=== PATIENT | male | born 1960 | race Caucasian/White ===

== ENCOUNTER 2017-09-04 17:52 | Emergency (ER) | payer BC ==
[2017-09-04 18:59] VITALS: BP 146/92
--- NOTE | 2017-09-04 19:36 | UC ---
Shoulder Pain HPI - HPI Summary HPI Summary: Pt presents with c/o right shoulder pain and "ball in right upper arm" . Pt states that he threw a foot ball 7 months ago and had sudden onset of right shoulder pain and "ball" form in right upper arm and extensive bruising that has since resolved. - History of Current Complaint Chief Complaint: UCUpperExtremity Stated Complaint: PAINFUL SHOULDER (STATED: TORN ROTATOR CUFF) Time Seen by Provider: 09/04/17 19:01 Hx Obtained From: Patient Onset/Duration: Sudden Onset, Still Present Timing: Constant Severity Initially: Moderate Severity Currently: Mild Location Of Pain: Is Discrete @ - right shoulder Pain Intensity: 6 Character: Dull, Stiffness Aggravating Factor(s): Movement, Lifting, Flexion, Extension, Internal Rotation , External Rotation, Abduction Alleviating Factor(s): Rest Associated Signs And Symptoms: Positive: Negative Related History: Dominant Hand Right - Risk Factors Non-Orthopedic Risk Factor: Negative DVT Risk Factors: Smoking Septic Arthritis Risk Factor: Negative - Allergies/Home Medications Allergies/Adverse Reactions: Allergies Allergy/AdvReac Type Severity Reaction Status Date / Time No Known Allergies Allergy Verified 09/04/17 18:59 Home Medications: Home Medications Aspirin 81 mg PO 09/04/17 [History] Hydrochlorothiazide TAB* [Hydrodiuril TAB*] 25 mg PO DAILY 09/04/17 [History Confirmed 09/04/17] Levothyroxine TAB* [Synthroid TAB*] 25 mcg PO 0800 09/04/17 [History Confirmed 09/04/17] Metoprolol Succinate [Metoprolol Succinate ER] 25 mg PO 09/04/17 [History] PMH/Surg Hx/FS Hx/Imm Hx Previously Healthy: Yes - Surgical History Surgical History: Yes Surgery Procedure, Year, and Place: choley - Family History Known Family History: Positive: Cardiac Disease - Social History Occupation: Unemployed Lives: With Family Alcohol Use: Rare Substance Use Type: None Smoking Status (MU): Heavy Every Day Tobacco Smoker Type: Cigarettes Have You Smoked in the Last Year: Yes Review of Systems Constitutional: Negative Skin: Negative Eyes: Negative ENT: Negative Respiratory: Negative Cardiovascular: Negative Gastrointestinal: Negative Genitourinary: Negative Motor: Decreased ROM - right shoulder, Weakness - right shoulder, Neurovascular: Negative Musculoskeletal: Arthralgia, Decreased ROM, Myalgia, Other: - right arm bicep "balled up" Neurological: Negative Psychological: Negative Is Patient Immunocompromised?: No All Other Systems Reviewed And Are Negative: Yes Physical Exam Triage Information Reviewed: Yes Appearance: Well-Appearing Vital Signs: Initial Vital Signs Temp 96.4 F 09/04/17 18:57 Pulse 76 09/04/17 18:57 Resp 18 09/04/17 18:57 BP 146/92 09/04/17 18:57 Pulse Ox 100 09/04/17 18:57 Vital Signs Reviewed: Yes Eye Exam: Normal ENT: Positive: Hearing grossly normal Dental: Positive: Gross Decay/Caries @ Neck exam: Normal Musculoskeletal Exam: Other Musculoskeletal: Positive: Strength Limited @, ROM Limited @ - right shoulder, Other: - right arm bicep contracted in a "ball" Neurological Exam: Normal Psychological Exam: Normal Skin Exam: Normal Shoulder Course/Dx - Differential Dx/Diagnosis Differential Diagnosis/HQI/PQRI: Rotator Cuff Injury, Sprain, Strain Provider Diagnoses: right shoulder injury. right biceps rupture-7 months ago Discharge - Discharge Plan Condition: Stable Disposition: HOME Patient Education Materials: Arthralgia (ED), Tendon Rupture (ED) Referrals: [facility] [Outside] Sergio Alberto MD [Medical Doctor] - As Soon As Possible No Primary Care Phys,NOPCP [Primary Care Provider] -
== END 2017-09-04 19:44 | disposition home or self-care (01) ==
LOC: UCCORT 17:52
DX: S49.91XA Unspecified injury of right shoulder and upper arm, initial encounter (principal); X50.0XXA Overexertion from strenuous movement or load, initial encounter; Y93.61 Activity, american tackle football; Y92.9 Unspecified place or not applicable; S46.211A Strain of muscle, fascia and tendon of other parts of biceps, right arm, initial encounter; F17.210 Nicotine dependence, cigarettes, uncomplicated
CPT/HCPCS: 99212; G0463